=== PATIENT | female | born 1995 | race American Indian/Alaskan Native ===

== ENCOUNTER 2017-07-22 12:19 | Outpatient (CLI) | payer SELFPAY ==
[2017-07-22] MEDS ORDERED: LACTATED RINGERS 500 ML IV ONE (13:08)
[2017-07-22 13:12] VITALS: BP 103/66
[2017-07-22] MEDS ORDERED: ZOFRAN IV ONE (13:33)
[2017-07-22 13:50] LABS: Bilirubin,Urine NEG (Negative); Color,Urine Yellow (Yellow)
[2017-07-22 13:51] LABS: Bacteria,Urine 1+ /HPF (Negative); Blood,Urine NEG (Negative); Mucus,Urine 3+ /HPF; Nitrite,Urine NEG (Negative)
[2017-07-22 14:08] LABS: Amphetamine Screen,Urine PRESUMPTIVE NEGATIVE; Benzodiazepines Screen,Urine PRESUMPTIVE NEGATIVE; Cocaine Screen,Urine PRESUMPTIVE NEGATIVE; Methadone Screen,Urine PRESUMPTIVE NEGATIVE; Opiate Screen,Urine PRESUMPTIVE NEGATIVE
[2017-07-22] MEDS: D5LR 1,000 ML IV SCH ×2 (14:11→16:48)
[2017-07-22 14:24] LABS: Cannabinoid Screen,Urine PRESUMPTIVE POSITIVE
== END 2017-07-22 18:08 | disposition home or self-care (01) ==
LOC: TRG 12:19
PROVIDERS: ATTEND Obstetrics & Gynecology Gynecology
DX: O47.02 False labor before 37 completed weeks of gestation, second trimester (principal); Z3A.29 29 weeks gestation of pregnancy
CPT/HCPCS: 80307; 81001; 96360; 96361; 96374; J2405; J7121

== ENCOUNTER 2021-08-12 21:53 | Emergency (ER) | payer SELFPAY ==
[2021-08-12] MEDS ORDERED: SODIUM CHLORIDE 0.9% 1000 ML 1,000 ML IV ONE (22:58)
[2021-08-12] MEDS ORDERED: diphenhydrAMINE 50 MG/ML VIAL IV ONE (22:58)
[2021-08-12] MEDS ORDERED: METOCLOPRAMIDE 10 MG/2 ML INJ IV ONE (22:58)
[2021-08-12 23:40] LABS: Basophils % (Auto) 0.3 % (0.0-1.8); Eosinophils # (Auto) 0.1 K/mm3 (0.0-0.4); Eosinophils % (Auto) 1.3 % (0.0-4.3); Hematocrit 35.5 % (30.3-42.9); Hemoglobin 11.8 gm/dl (10.1-14.3); Lymphocytes # (Auto) 1.8 K/mm3 (1.2-5.4); Lymphocytes % (Auto) 15.6 % (13.4-35.0); Mean Corpuscular HGB Conc 33 % (30-34); Mean Corpuscular Volume 86 fl (79-97); Monocytes # (Auto) 0.6 K/mm3 (0.0-0.8); Monocytes % (Auto) 5.5 % (0.0-7.3); Platelet Count 147 K/mm3 (140-440); Red Blood Count 4.12 M/mm3 (3.65-5.03); Red Cell Distribution Width 14.9 % (13.2-15.2)
[2021-08-13 00:02] LABS: Alanine Aminotransferase 5 units/L (7-56); Albumin 4.3 g/dL (3.9-5); Blood Urea Nitrogen 12 mg/dL (7-17); Calcium 9.3 mg/dL (8.4-10.2); Hemolysis Index 0
[2021-08-13 00:19] LABS: BUN/Creatinine Ratio 24
[2021-08-13 01:50] LABS: Bilirubin,Urine NEG (Negative); Blood,Urine NEG (Negative); Color,Urine Amber (Yellow); Mucus,Urine 3+ /HPF
--- NOTE | 2021-08-13 03:21 | Emergency Department Report ---
ED N/V/D HPI - General Chief complaint: Nausea/Vomiting/Diarrhea Stated complaint: SHORTNESS OF BREATH AND WEAKNESS Source: EMS Mode of arrival: Stretcher Limitations: No Limitations - History of Present Illness Initial comments: Patient is a A0 26-year-old -[place] female who is approximately 11 to 12 weeks gestation and who presented to the ED with complaint of acute onset persistent pelvic pain with intractable nausea and vomiting for the last 2 weeks, worse in the last 3 days. Patient states that she has not been able to keep anything down in the last 2 days because of worsening nausea and vomiting. Patient states that she initially tried to cut it in and went to an clinic about 4 weeks ago and was given some follow-up tablets that she was advised to insert into have vaginal canal to initiate the process. Patient stated that she does not believe that the ever took place and she may have expelled the medications thereafter. Patient states that she has since changed her mind and wanted to keep the but has been having persistent intractable nausea and vomiting since that incident. Patient denies dizziness, syncope, chest pain or shortness of breath, fever, chills, dysuria, urine frequency and urgency, diarrhea, hematemesis, hematochezia, vaginal bleeding or vaginal discharge. MD complaint: nausea, vomiting, abdominal pain (Suprapubic pain), other (approximatelyn 12 weeks gestation) -: Sudden, week(s) (2) Description of Vomiting: food contents, watery, bilious Associated Abdominal Pain: Yes (suprapubic pain) Location: epigastric Radiation: none Severity: severe Pain Scale: 7 Quality: cramping, sharp Consistency: constant Improves with: none Worsens with: vomiting Context: other (Approximately 11 to 12 weeks gestation) Associated Symptoms: denies other symptoms, nausea/vomiting, weakness. denies: chest pain, cough, diaphoresis, fever/chills, headaches, loss of appetite, malaise, shortness of breath, syncope - Related Data Previous Rx's Medication Instructions Recorded Last Taken Type Acetaminophen [Tylenol] 500 mg PO Q6HR PRN #30 tablet 08/13/21 Unknown Rx Metoclopramide [Reglan] 10 mg PO Q8H PRN #30 tab 08/13/21 Unknown Rx 148/Iron/Folate 6/Dha 1 each PO DAILY #60 cap 08/13/21 Unknown Rx [Tendera-Ob Softgel] Promethazine [Phenergan] 25 mg VT Q6HR PRN #20 supp.rect 08/13/21 Unknown Rx cephALEXin [Keflex] 500 mg PO Q8HR #30 cap 08/13/21 Unknown Rx Allergies Allergy/AdvReac Type Severity Reaction Status Date / Time No Known Allergies Allergy Verified 07/22/17 13:08 ED Review of Systems ROS: Stated complaint: SHORTNESS OF BREATH AND WEAKNESS Other details as noted in HPI Constitutional: denies: chills, fever Eyes: denies: eye pain, eye discharge, vision change ENT: denies: ear pain, throat pain Respiratory: denies: cough, orthopnea, shortness of breath, wheezing Cardiovascular: denies: chest pain, palpitations Endocrine: no symptoms reported Gastrointestinal: abdominal pain, nausea, vomiting. denies: diarrhea Genitourinary: denies: urgency, dysuria, frequency, hematuria, discharge, abnormal menses, dyspareunia Musculoskeletal: denies: back pain, joint swelling, arthralgia Skin: denies: rash, lesions Neurological: denies: headache, weakness, paresthesias Psychiatric: denies: anxiety, depression Hematological/Lymphatic: denies: easy bleeding, easy bruising ED Past Medical Hx - Past Medical History Hx Hypertension: No Hx Diabetes: No Hx Deep Vein Thrombosis: No Hx Renal Disease: No Hx Sickle Cell Disease: No Hx Seizures: No Hx Asthma: No Hx HIV: No - Social History Smoking Status: Never Smoker - Medications Home Medications: Home Medications Medication Instructions Recorded Confirmed Last Taken Type Acetaminophen [Tylenol] 500 mg PO Q6HR PRN #30 tablet 08/13/21 Unknown Rx Metoclopramide [Reglan] 10 mg PO Q8H PRN #30 tab 08/13/21 Unknown Rx 148/Iron/Folate 6/Dha 1 each PO DAILY #60 cap 08/13/21 Unknown Rx [Tendera-Ob Softgel] Promethazine [Phenergan] 25 mg VT Q6HR PRN #20 supp.rect 08/13/21 Unknown Rx cephALEXin [Keflex] 500 mg PO Q8HR #30 cap 08/13/21 Unknown Rx ED Physical Exam - General Limitations: No Limitations General appearance: alert, in no apparent distress - Head Head exam: Present: atraumatic, normocephalic, normal inspection - Eye Eye exam: Present: normal appearance, PERRL, EOMI Pupils: Present: normal accommodation - ENT ENT exam: Present: normal exam, normal orophraynx, mucous membranes moist, TM's normal bilaterally, normal external ear exam - Neck Neck exam: Present: normal inspection, full ROM - Respiratory Respiratory exam: Present: normal lung sounds bilaterally. Absent: respiratory distress, wheezes, rales, rhonchi, chest wall tenderness, accessory muscle use, decreased breath sounds, prolonged expiratory - Cardiovascular Cardiovascular Exam: Present: regular rate, normal rhythm, normal heart sounds. Absent: systolic murmur, diastolic murmur, rubs, gallop - GI/Abdominal GI/Abdominal exam: Present: soft, tenderness (Palpable suprapubic tenderness), normal bowel sounds. Absent: guarding, rebound, hyperactive bowel sounds, hypoactive bowel sounds, organomegaly - Extremities Exam Extremities exam: Present: normal inspection, full ROM, normal capillary refill - Back Exam Back exam: Present: normal inspection, full ROM. Absent: tenderness, CVA tende rness (R), CVA tenderness (L), muscle spasm, paraspinal tenderness, vertebral tenderness - Neurological Exam Neurological exam: Present: alert, oriented X3, CN II-XII intact, normal gait, reflexes normal - Psychiatric Psychiatric exam: Present: normal affect, normal mood - Skin Skin exam: Present: warm, dry, intact, normal color. Absent: rash ED Course Vital Signs 08/12/21 22:10 Temperature 98.5 F Pulse Rate 88 Respiratory 16 Rate Blood Pressure 121/81 [Left] O2 Sat by Pulse 100 Oximetry ED Medical Decision Making - Lab Data Result diagrams: 08/12/21 23:19 08/12/21 23:19 - Radiology Data Radiology results: report reviewed, image reviewed The transvaginal ultrasound showed well-defined gestational sac which is oval in shape and intrauterine in location with no abnormality on the yolk sac. Is also showed right ovary which is unremarkable in normal size and left ovary which was not identified. The uterus the aforementioned 8.9 x 7.2 x 10.0 cm. Right ovary measured 3.8 by 1.4 x 2.2 cm. It also showed a single living intrauterine with estimated sonographic age of 12 weeks and 3 days and estimated date of delivery of February 22, 2022 and heart rate 157 bpm. - Medical Decision Making This is a A0 26-year-old -[place] female who is approximately 11 to 12 weeks gestation and who presented to the ED with complaint of acute onset persistent pelvic pain with intractable nausea and vomiting for the last 2 weeks, worse in the last 3 days. Patient states that she has not been able to keep anything down in the last 2 days because of worsening nausea and vomiting. Patient states that she initially tried to cut it in and went to an clinic about 4 weeks ago and was given some follow-up tablets that she was advised to insert into have vaginal canal to initiate the process. Patient stated that she does not believe that the ever took place and she may have expelled the medications thereafter. Patient states that she has since changed her mind and wanted to keep the but has been having persistent intractable nausea and vomiting since that incident. In the ED, patient is alert and oriented x3 and is not in any distress. Patient was treated in the ED for nausea and vomiting, also treated with normal saline 1 L IV bolus x1. Lab test results were reviewed and are all nonactionable except for urinalysis that showed significant urinary tract infection and hCG quant of 544010 and hyponatremia of 133 mmol/L and mild hypokalemia of 3.4 mmol/L. Transvaginal ultrasound showed a single live intrauterine of approximately 12 weeks and 3 days with a heart rate of 157 bpm and no other acute abnormalities. On reevaluation, patient passed oral fluid challenge in the ED and was able to drink fluids in the ED with no nausea or vomiting. Patient was therefore discharged home on medications and advised to maintain a complete pelvic rest, and follow-up with your [facility] physician in 5 to 7 days for reevaluation. Patient was advised return to the ED immediately if symptoms get worse. - Differential Diagnosis UTI; Ovarian cyst; ectopic ; round ligament pain; dehydration Critical care attestation.: If time is entered above; I have spent that time in minutes in the direct care of this critically ill patient, excluding procedure time. ED Disposition Clinical Impression: Nausea and vomiting in prior to 22 weeks gestation, Abdominal pain during in first trimester, Acute urinary tract infection, Mild hyperemesis gravidarum Disposition: 01 HOME / SELF CARE / HOMELESS Is pt being admited?: No Does the pt Need Aspirin: No Condition: Stable Instructions: Abdominal Pain, Adult, [id number], Morning Sickness, [id number], Nausea and Vomiting, Adult, [id number], Hyperemesis Gravidarum, Urinary Tract Infection, Adult, [id number] Additional Instructions: All lab test results were reviewed and are all nonactionable except for urinalysis that showed urinary tract infection. Transvaginal ultrasound showed a single live intrauterine of approximately 12 weeks and 3 days with a heart rate of 157 bpm. Therefore maintain a complete pelvic rest, take medications as needed for nausea and vomiting, Tylenol as needed for pain and the prescribed antibiotics and vitamins. Follow-up with your [facility] physician Dr. Ram in 3 to 5 days for reevaluation. Return to the ED immediately if symptoms get worse. Prescriptions: Acetaminophen [Tylenol] 500 mg PO Q6HR PRN #30 tablet PRN Reason: Pain , Severe (7-10) cephALEXin [Keflex] 500 mg PO Q8HR #30 cap Promethazine [Phenergan] 25 mg VT Q6HR PRN #20 supp.rect PRN Reason: Nausea Metoclopramide [Reglan] 10 mg PO Q8H PRN #30 tab PRN Reason: Nausea 148/Iron/Folate 6/Dha [Tendera-Ob Softgel] 1 each PO DAILY #60 cap Referrals: LAN RAM MD [Staff Physician] - 3-5 Days Time of Disposition: 03:27 Print Language: EQUATORIAL [place]
[2021-08-13 04:02] VITALS: BP 122/62
== END 2021-08-13 04:01 | disposition home or self-care (01) ==
LOC: ED 21:53
DX: O21.0 Mild hyperemesis gravidarum (principal); O23.41 Unspecified infection of urinary tract in pregnancy, first trimester; N39.0 Urinary tract infection, site not specified; Z3A.11 11 weeks gestation of pregnancy; Z79.899 Other long term (current) drug therapy
CPT/HCPCS: 36415; 76801; 76817; 80053; 81001; 83690; 84702; 85025; 87086; 96361; 96374; 96375; 99284; J1200; J2765; J7030; Q0162

== ENCOUNTER 2022-02-10 10:24 | Inpatient (IN) | payer MEDICAID ==
[~2022-02-10 10:24] MED LIST: ACETAMINOPHEN 325 MG TAB PO PRN
--- NOTE | 2022-02-10 12:36 | Ultrasound Report ---
ULTRASOUND OBSTETRIC LIMITED INDICATION / CLINICAL INFORMATION: LIN R/O SROM. Possibly leaking fluid. - Clinical Gestational Age (GA) in weeks, days: 38, 3 TECHNIQUE: Transabdominal. COMPARISON: None available. FINDINGS: HEART RATE (beats per minute): 135 AMNIOTIC FLUID INDEX (cm) = 9.6 (normal = 7-24 cm) PRESENTATION: Cephalic. ADDITIONAL FINDINGS: Anterior, grade 2 placenta without evidence of previa or abruption. IMPRESSION: LIN 9.6 cm. Signer Name: Ferdinand Campbell MD Signed: 02/10/2022 12:31 PM Workstation Name: [email or web address]
--- NOTE | 2022-02-10 14:31 | History and Physical Report ---
History of Present Illness Date of examination: 02/10/22 Chief complaint: my water broke History of present illness: Pt is a 26 year old -Citizen Of The [place] female [id number] AUDREY 02/21/22 at 38w4d who presents with rupture of membranes at 0645 am 02/10/22. She denies contractions or vaginal bleeding. She has had care at [facility] since 20 wks complicated by insufficient care, anemia, h/o preeclampsia, thrombocytopenia, genital herpes without lesion or prodrome, lapse in care from 26-37 wks. She is GBS negative. Past History Past Medical History: hematologic disorders (anemia ) Past Surgical History: no surgical history [employer] History: herpes (no lesion or prodrome ) Family/Genetic History: none Social history: no significant social history - Obstetrical History Expected Date of Delivery: 02/21/22 Actual Gestation: 38 Week(s) 4 Day(s) : 4 Para: 3 Hx # Term Pregnancies: 2 Number of Pregnancies: 1 Spontaneous Abortions: 0 Induced : 0 Number of Living Children: 3 Medications and Allergies Allergies Allergy/AdvReac Type Severity Reaction Status Date / Time No Known Allergies Allergy Verified 07/22/17 13:08 Home Medications Medication Instructions Recorded Confirmed Last Taken Type 148/Iron/Folate 6/Dha 1 each PO DAILY #60 cap 08/13/21 02/10/22 01/27/22 11:00 Rx [Tendera-Ob Softgel] Valtrex 1 tab PO BID 02/10/22 02/10/22 02/09/22 History Active Meds: Active Medications Acetaminophen (Acetaminophen 325 Mg Tab) 650 mg PO Q4H PRN PRN Reason: Pain, Mild (1-3) Butorphanol Tartrate (Butorphanol 2 Mg/1 Ml Inj) 1 mg IV Q2H PRN PRN Reason: Pain, Moderate(4-6) LABOR PAIN Carboprost Tromethamine (Carboprost Tromethamine 250 Mcg/1 Ml Inj) 250 mcg IM ONCE PRN PRN Reason: Uterine Bleeding Ephedrine Sulfate (Ephedrine Sulfate 50 Mg/1 Ml Inj) 10 mg IV Q2M PRN PRN Reason: Hypotension Fentanyl (Fentanyl 100 Mcg/2 Ml Inj) 100 mcg IV Q2H PRN PRN Reason: Pain,Severe (7-10) LABOR PAIN Oxytocin/Sodium Chloride (Pitocin/Ns 30 Unit/500ml) 30 units in 500 mls @ 2 mls/hr IV TITR LESLEY; Protocol Lactated Ringer's (Lactated Ringers) 1,000 mls @ 125 mls/hr IV DIRECT LESLEY Oxytocin/Sodium Chloride (Pitocin/Ns 30 Unit/500ml) 30 units in 500 mls @ 40 mls/hr IV TITR LESLEY; Protocol Lidocaine (Lidocaine (2%) 20 Mg/1 Ml Vial 20 Ml Mdv) 20 ml INFILTRATI ONCE ONE Stop: 02/10/22 14:27 Loperamide HCl (Loperamide 2 Mg Cap) 2 mg PO ONCE PRN PRN Reason: give with Hemabate Methylergonovine Maleate (Methylergonovine Maleate 0.2 Mg/Ml Vial) 0.2 mg IM ONCE PRN PRN Reason: Uterine Bleeding Mineral Oil (Mineral Oil 30 Ml Oral Liqd) 30 ml PO QHS PRN PRN Reason: Constipation Misoprostol (Misoprostol 200 Mcg Tab) 800 mcg MN ONCE PRN PRN Reason: Uterine Bleeding Naloxone HCl (Naloxone 0.4 Mg/1 Ml Inj) 0.1 mg IV Q2MIN PRN PRN Reason: Res Rate </= 8 or 02 SAT < 92% Ondansetron HCl (Ondansetron 4 Mg/2 Ml Inj) 4 mg IV Q8H PRN PRN Reason: Nausea And Vomiting Oxytocin (Oxytocin 10 Unit/1 Ml Inj) 10 unit IM ONCE PRN PRN Reason: Uterine Bleeding Terbutaline Sulfate (Terbutaline 1 Mg/1 Ml Inj) 0.25 mg SUB-Q ONCE PRN PRN Reason: Hyperstimulation/Hypertonicity Review of Systems All systems: negative - Vital Signs Vital signs: Vital Signs Pulse BP Pulse Ox 91 H 128/71 98 02/10/22 11:05 02/10/22 11:05 02/10/22 11:05 Temp Pulse Resp BP Pulse Ox 97.7 F 78 18 128/71 99 02/10/22 11:21 02/10/22 12:55 02/10/22 11:21 02/10/22 11:05 02/10/22 12:55 - Physical Exam Breasts: Positive: deferred Abdomen: Positive: soft (gravid ) Uterus: Positive: enlarged (gravid ) Extremities: Positive: edema (trace) - Obstetrical FHR: auscultation normal Uterine Contraction Monitor Mode: External Cervical Dilatation: 1 Cervical Effacement Percentage: 40 station: -3 Uterine Contraction Pattern: Irregular Uterine Tone Measurement Phase: Resting Uterine Contraction Intensity: Mild Results Result Diagrams: 02/10/22 16:30 All other labs normal. Assessment and Plan A: IUP at 38w3d SROM Thrombocytopenia Anemia Genital Herpes without lesion or prodrome GBS Negative P: Admit to labor and delivery Pitocin induction Valtrex for herpes prophylaxis Closely monitor maternal and status
[2022-02-10] MEDS ORDERED: ACETAMINOPHEN 325 MG TAB PO PRN (15:00)
[2022-02-10] MEDS ORDERED: BUTORPHANOL 2 MG/1 ML INJ IV PRN (15:00)
[2022-02-10] MEDS ORDERED: METHYLERGONOVINE MALEATE 0.2 MG/ML VIAL IM PRN (15:00)
[2022-02-10] MEDS ORDERED: miSOPROStol 200 MCG TAB PR PRN (15:00)
[2022-02-10] MEDS ORDERED: OXYTOCIN DRIP 30 UNITS/500 ML BAG IV SCH (15:00)
[2022-02-10] MEDS ORDERED: CARBOPROST TROMETHAMINE 250 MCG/1 ML INJ IM PRN (15:00)
[2022-02-10] MEDS ORDERED: NALOXONE 0.4 MG/1 ML INJ IV PRN (15:00)
[2022-02-10] MEDS ORDERED: OXYTOCIN 10 UNIT/1 ML INJ IM PRN (15:00)
[2022-02-10] MEDS ORDERED: LIDOCAINE (2%) 20 MG/1 ML VIAL 20 ML MDV INFILTRATI NR (15:00)
[2022-02-10] MEDS ORDERED: LOPERAMIDE 2 MG CAP PO PRN (15:00)
[2022-02-10] MEDS ORDERED: TERBUTALINE 1 MG/1 ML INJ SUB-Q PRN (15:00)
[2022-02-10] MEDS ORDERED: MINERAL OIL 30 ML ORAL LIQD PO PRN (15:00)
[2022-02-10] MEDS ORDERED: ONDANSETRON 4 MG/2 ML INJ IV PRN (15:00)
[2022-02-10] MEDS ORDERED: ePHEDrine SULFATE 50 MG/1 ML INJ IV PRN (15:00)
[2022-02-10 17:50] LABS: Hematocrit 23.8 % (30.3-42.9); Hemoglobin 7.6 gm/dl (10.1-14.3); Mean Corpuscular HGB Conc 32 % (30-34); Red Blood Count 3.63 M/mm3 (3.65-5.03); Red Cell Distribution Width 19.8 % (13.2-15.2)
[2022-02-10 18:18] LABS: Mean Corpuscular Volume 66 fl (79-97)
[2022-02-10] MEDS ORDERED: SODIUM CHLORIDE 0.9% 500 ML 500 ML IV ONE (18:41)
[2022-02-10] MEDS: OXYTOCIN DRIP 30 UNITS/500 ML BAG IV SCH (19:06)
[2022-02-10] MEDS: LACTATED RINGERS 1,000 ML IV SCH (19:07)
[2022-02-10 19:42] LABS: Platelet Count 88 K/mm3 (140-440)
[2022-02-11] MEDS ORDERED: AMPICILLIN/NS 2 GM/100 ML 2 GM/100 ML BAG IV ONE ×2 (01:36→14:22)
[2022-02-11] MEDS: OXYTOCIN DRIP 30 UNITS/500 ML BAG IV SCH (09:49)
[2022-02-11] MEDS ORDERED: valACYclovir 500 MG TAB PO SCH (10:00)
--- NOTE | 2022-02-11 13:15 | Progress Note ---
Assessment and Plan - Patient Problems (1) with 38 completed weeks gestation Current Visit: Yes Status: Acute Plan to address problem: Presenting part very high Confirmed vertex presentation via U/S Feels as if forebag is p Continue Pitocin titration as tolerated Pain meds as needed (2) Thrombocytopenia affecting Current Visit: Yes Status: Acute (3) HSV-2 seropositive Current Visit: Yes Status: Acute Plan to address problem: No active lesions noted Subjective - Subjective Date of service: 02/11/22 Principal diagnosis: Possibel ROM Interval history: Pt is a 26 year old -[place] female [id number] AUDREY 02/21/22 at 38w4d who presents with rupture of membranes at 0645 am 02/10/22. She denies contractions or vaginal bleeding. She has had care at [facility] since 20 wks complicated by insufficient care, anemia, h/o preeclampsia, thrombocytopenia, genital herpes without lesion or prodrome, lapse in care from 26-37 wks. She is GBS negative. Patient reports: movement normal, contractions (irregular), no new complaints, no vaginal bleeding Objective - Vital Signs Vital Signs: Vital Signs - 12hr 02/11/22 02/11/22 02/11/22 01:19 01:24 01:29 Temperature Pulse Rate 82 82 83 Blood Pressure O2 Sat by Pulse 98 98 98 Oximetry O2 Sat by Pulse Oximetry [ Anterior Throughout] 02/11/22 02/11/22 02/11/22 01:34 01:39 01:44 Temperature Pulse Rate 83 89 81 Blood Pressure O2 Sat by Pulse 99 99 97 Oximetry O2 Sat by Pulse Oximetry [ Anterior Throughout] 02/11/22 02/11/22 02/11/22 01:49 01:54 01:59 Temperature Pulse Rate 81 79 79 Blood Pressure O2 Sat by Pulse 98 97 97 Oximetry O2 Sat by Pulse Oximetry [ Anterior Throughout] 02/11/22 02/11/22 02/11/22 02:04 02:09 02:14 Temperature Pulse Rate 82 89 93 H Blood Pressure O2 Sat by Pulse 98 99 99 Oximetry O2 Sat by Pulse Oximetry [ Anterior Throughout] 02/11/22 02/11/22 02/11/22 02:19 02:24 02:29 Temperature Pulse Rate 91 H 81 80 Blood Pressure O2 Sat by Pulse 100 98 99 Oximetry O2 Sat by Pulse Oximetry [ Anterior Throughout] 02/11/22 02/11/22 02/11/22 02:34 02:39 02:44 Temperature Pulse Rate 89 88 80 Blood Pressure O2 Sat by Pulse 98 98 99 Oximetry O2 Sat by Pulse Oximetry [ Anterior Throughout] 02/11/22 02/11/22 02/11/22 02:49 02:54 02:59 Temperature Pulse Rate 100 H 86 86 Blood Pressure O2 Sat by Pulse 100 99 100 Oximetry O2 Sat by Pulse Oximetry [ Anterior Throughout] 02/11/22 02/11/22 02/11/22 03:04 03:09 03:14 Temperature Pulse Rate 83 84 87 Blood Pressure O2 Sat by Pulse 100 98 99 Oximetry O2 Sat by Pulse Oximetry [ Anterior Throughout] 02/11/22 02/11/22 02/11/22 03:19 03:24 03:29 Temperature Pulse Rate 80 81 80 Blood Pressure O2 Sat by Pulse 99 99 99 Oximetry O2 Sat by Pulse Oximetry [ Anterior Throughout] 02/11/22 02/11/22 02/11/22 03:34 03:39 03:44 Temperature Pulse Rate 82 79 86 Blood Pressure O2 Sat by Pulse 98 98 99 Oximetry O2 Sat by Pulse Oximetry [ Anterior Throughout] 02/11/22 02/11/22 02/11/22 03:49 03:54 03:59 Temperature Pulse Rate 88 88 91 H Blood Pressure O2 Sat by Pulse 98 99 98 Oximetry O2 Sat by Pulse Oximetry [ Anterior Throughout] 02/11/22 02/11/22 02/11/22 04:04 04:09 04:14 Temperature Pulse Rate 81 78 78 Blood Pressure O2 Sat by Pulse 99 97 97 Oximetry O2 Sat by Pulse Oximetry [ Anterior Throughout] 02/11/22 02/11/22 02/11/22 04:19 04:24 04:29 Temperature Pulse Rate 94 H 78 76 Blood Pressure O2 Sat by Pulse 97 97 97 Oximetry O2 Sat by Pulse Oximetry [ Anterior Throughout] 02/11/22 02/11/22 02/11/22 04:34 04:39 04:44 Temperature Pulse Rate 75 79 78 Blood Pressure O2 Sat by Pulse 97 97 97 Oximetry O2 Sat by Pulse Oximetry [ Anterior Throughout] 02/11/22 02/11/22 02/11/22 04:49 04:54 04:59 Temperature Pulse Rate 80 81 80 Blood Pressure O2 Sat by Pulse 97 97 96 Oximetry O2 Sat by Pulse Oximetry [ Anterior Throughout] 02/11/22 02/11/22 02/11/22 05:04 05:09 05:14 Temperature Pulse Rate 94 H 79 74 Blood Pressure O2 Sat by Pulse 100 97 97 Oximetry O2 Sat by Pulse Oximetry [ Anterior Throughout] 02/11/22 02/11/22 02/11/22 05:19 05:24 05:29 Temperature Pulse Rate 77 84 76 Blood Pressure O2 Sat by Pulse 97 98 97 Oximetry O2 Sat by Pulse Oximetry [ Anterior Throughout] 02/11/22 02/11/22 02/11/22 05:34 05:39 05:44 Temperature Pulse Rate 78 79 76 Blood Pressure O2 Sat by Pulse 97 98 98 Oximetry O2 Sat by Pulse Oximetry [ Anterior Throughout] 02/11/22 02/11/22 02/11/22 05:49 05:54 06:09 Temperature Pulse Rate 78 84 94 H Blood Pressure O2 Sat by Pulse 98 97 99 Oximetry O2 Sat by Pulse Oximetry [ Anterior Throughout] 02/11/22 02/11/22 02/11/22 06:14 06:19 06:24 Temperature Pulse Rate 80 80 75 Blood Pressure O2 Sat by Pulse 99 100 99 Oximetry O2 Sat by Pulse Oximetry [ Anterior Throughout] 02/11/22 02/11/22 02/11/22 06:29 06:34 06:39 Temperature Pulse Rate 80 83 77 Blood Pressure O2 Sat by Pulse 98 99 99 Oximetry O2 Sat by Pulse Oximetry [ Anterior Throughout] 02/11/22 02/11/22 02/11/22 06:44 06:49 06:54 Temperature Pulse Rate 78 77 80 Blood Pressure O2 Sat by Pulse 99 99 99 Oximetry O2 Sat by Pulse Oximetry [ Anterior Throughout] 02/11/22 02/11/22 02/11/22 06:59 07:04 07:09 Temperature Pulse Rate 80 77 82 Blood Pressure O2 Sat by Pulse 99 99 98 Oximetry O2 Sat by Pulse Oximetry [ Anterior Throughout] 02/11/22 02/11/22 02/11/22 07:14 07:19 07:21 Temperature Pulse Rate 81 79 Blood Pressure O2 Sat by Pulse 99 99 Oximetry O2 Sat by Pulse 99 Oximetry [ Anterior Throughout] 02/11/22 02/11/22 02/11/22 07:24 07:29 07:34 Temperature Pulse Rate 84 79 72 Blood Pressure O2 Sat by Pulse 99 99 99 Oximetry O2 Sat by Pulse Oximetry [ Anterior Throughout] 02/11/22 02/11/22 02/11/22 07:39 07:44 07:49 Temperature Pulse Rate 70 88 80 Blood Pressure O2 Sat by Pulse 99 99 99 Oximetry O2 Sat by Pulse Oximetry [ Anterior Throughout] 02/11/22 02/11/22 02/11/22 07:54 07:59 08:04 Temperature Pulse Rate 82 87 89 Blood Pressure O2 Sat by Pulse 98 98 99 Oximetry O2 Sat by Pulse Oximetry [ Anterior Throughout] 02/11/22 02/11/22 02/11/22 08:09 08:14 08:19 Temperature Pulse Rate 81 84 79 Blood Pressure O2 Sat by Pulse 100 99 98 Oximetry O2 Sat by Pulse Oximetry [ Anterior Throughout] 02/11/22 02/11/22 02/11/22 08:24 08:29 08:33 Temperature Pulse Rate 81 81 94 H Blood Pressure 117/69 O2 Sat by Pulse 98 97 Oximetry O2 Sat by Pulse Oximetry [ Anterior Throughout] 02/11/22 02/11/22 02/11/22 08:34 08:39 08:44 Temperature 98.6 F Pulse Rate 99 H 97 H 91 H Blood Pressure O2 Sat by Pulse 100 100 100 Oximetry O2 Sat by Pulse Oximetry [ Anterior Throughout] 02/11/22 02/11/22 02/11/22 08:49 08:54 08:59 Temperature Pulse Rate 96 H 84 91 H Blood Pressure O2 Sat by Pulse 99 99 98 Oximetry O2 Sat by Pulse Oximetry [ Anterior Throughout] 02/11/22 02/11/22 02/11/22 09:04 09:09 09:14 Temperature Pulse Rate 85 86 92 H Blood Pressure O2 Sat by Pulse 100 99 99 Oximetry O2 Sat by Pulse Oximetry [ Anterior Throughout] 02/11/22 02/11/22 02/11/22 09:19 09:24 09:29 Temperature Pulse Rate 88 82 85 Blood Pressure O2 Sat by Pulse 98 99 100 Oximetry O2 Sat by Pulse Oximetry [ Anterior Throughout] 02/11/22 02/11/22 02/11/22 09:34 09:39 09:44 Temperature Pulse Rate 81 83 76 Blood Pressure O2 Sat by Pulse 99 99 99 Oximetry O2 Sat by Pulse Oximetry [ Anterior Throughout] 02/11/22 02/11/22 02/11/22 09:49 09:54 09:59 Temperature Pulse Rate 84 83 82 Blood Pressure O2 Sat by Pulse 99 99 100 Oximetry O2 Sat by Pulse Oximetry [ Anterior Throughout] 02/11/22 02/11/22 02/11/22 10:04 10:09 10:14 Temperature Pulse Rate 86 97 H 89 Blood Pressure O2 Sat by Pulse 99 100 100 Oximetry O2 Sat by Pulse Oximetry [ Anterior Throughout] 02/11/22 02/11/22 02/11/22 10:19 10:24 10:29 Temperature Pulse Rate 88 82 93 H Blood Pressure O2 Sat by Pulse 99 100 98 Oximetry O2 Sat by Pulse Oximetry [ Anterior Throughout] 02/11/22 02/11/22 02/11/22 10:34 10:39 10:44 Temperature Pulse Rate 81 75 89 Blood Pressure O2 Sat by Pulse 100 96 99 Oximetry O2 Sat by Pulse Oximetry [ Anterior Throughout] 02/11/22 02/11/22 02/11/22 10:49 10:54 10:59 Temperature 98.4 F Pulse Rate 77 75 75 Blood Pressure O2 Sat by Pulse 98 97 97 Oximetry O2 Sat by Pulse Oximetry [ Anterior Throughout] 02/11/22 02/11/22 02/11/22 11:04 11:09 11:14 Temperature Pulse Rate 72 72 74 Blood Pressure O2 Sat by Pulse 98 96 95 Oximetry O2 Sat by Pulse Oximetry [ Anterior Throughout] 02/11/22 02/11/22 02/11/22 11:19 11:24 11:29 Temperature Pulse Rate 77 73 80 Blood Pressure O2 Sat by Pulse 97 98 99 Oximetry O2 Sat by Pulse Oximetry [ Anterior Throughout] 02/11/22 02/11/22 02/11/22 11:34 11:39 11:44 Temperature Pulse Rate 78 84 77 Blood Pressure O2 Sat by Pulse 100 98 100 Oximetry O2 Sat by Pulse Oximetry [ Anterior Throughout] 02/11/22 02/11/22 02/11/22 11:49 11:54 11:59 Temperature Pulse Rate 79 77 76 Blood Pressure O2 Sat by Pulse 99 99 99 Oximetry O2 Sat by Pulse Oximetry [ Anterior Throughout] 02/11/22 02/11/22 02/11/22 12:04 12:09 12:14 Temperature Pulse Rate 80 77 75 Blood Pressure O2 Sat by Pulse 99 98 98 Oximetry O2 Sat by Pulse Oximetry [ Anterior Throughout] 02/11/22 02/11/22 02/11/22 12:19 12:24 12:29 Temperature Pulse Rate 71 77 86 Blood Pressure O2 Sat by Pulse 98 99 100 Oximetry O2 Sat by Pulse Oximetry [ Anterior Throughout] 02/11/22 02/11/22 02/11/22 12:34 12:39 12:44 Temperature Pulse Rate 97 H 88 82 Blood Pressure O2 Sat by Pulse 100 100 99 Oximetry O2 Sat by Pulse Oximetry [ Anterior Throughout] 02/11/22 02/11/22 02/11/22 12:49 12:54 12:59 Temperature Pulse Rate 114 H 81 82 Blood Pressure O2 Sat by Pulse 100 100 100 Oximetry O2 Sat by Pulse Oximetry [ Anterior Throughout] 02/11/22 02/11/22 13:04 13:09 Temperature Pulse Rate 76 83 Blood Pressure O2 Sat by Pulse 100 100 Oximetry O2 Sat by Pulse Oximetry [ Anterior Throughout] - Exam Breasts: deferred Cardiovascular: Regular rate Lungs: Normal air movement Uterus: Present: firm (S=D) FHR: category 1 Uterine Contraction Monitor Mode: External Cervical Dilatation: 5 (vertex, confirmed by U/S) Cervical Effacement Percentage: 60 station: -4 Uterine Contraction Pattern: Irregular Uterine Tone Measurement Phase: Resting Uterine Contraction Intensity: Mild Extremities: normal - Labs Labs: Abnormal Labs 02/10/22 02/10/22 16:30 16:30 RBC 3.63 L Hgb 7.6 L Hct 23.8 L MCV 66 L MCH 21 L RDW 19.8 H Plt Count 88 L Crossmatch See Detail Laboratory Results - last 24 hr 02/10/22 02/10/22 02/11/22 16:30 16:30 11:37 WBC 9.2 RBC 3.63 L Hgb 7.6 L Hct 23.8 L MCV 66 L MCH 21 L MCHC 32 RDW 19.8 H Plt Count 88 L SARS-CoV-2 (PCR) Negative Blood Type A POSITIVE Antibody Screen Negative Crossmatch See Detail
[2022-02-11] MEDS: LACTATED RINGERS 1,000 ML IV SCH ×2 (14:09→23:07)
[2022-02-11] MEDS: fentaNYL 100 MCG/2 ML INJ IV PRN ×3 (14:27→20:52)
[2022-02-11] MEDS: AMPICILLIN/NS 1 GM/50 ML 1 GM/50 ML BAG IV SCH ×2 (18:37→23:21)
[2022-02-11] MEDS ORDERED: BUTORPHANOL 2 MG/1 ML INJ IV PRN (20:47)
--- NOTE | 2022-02-12 00:02 | Progress Note ---
Assessment and Plan - Patient Problems (1) with 38 completed weeks gestation Current Visit: Yes Status: Acute Plan to address problem: Continue Pitocin titration as tolerated Pain meds as needed Anticipate (2) Thrombocytopenia affecting Current Visit: Yes Status: Acute (3) HSV-2 seropositive Current Visit: Yes Status: Acute Plan to address problem: No active lesions noted Subjective - Subjective Date of service: 02/11/22 Principal diagnosis: SROM Interval history: Pt is a 26 year old -[place] female [id number] AUDREY 02/21/22 at 38w4d who presents with rupture of membranes at 0645 am 02/10/22. She denies contractions or vaginal bleeding. She has had care at [facility] since 20 wks complicated by insufficient care, anemia, h/o preeclampsia, thrombocytopenia, genital herpes without lesion or prodrome, lapse in care from 26-37 wks. She is GBS negative. Patient reports: loss of fluid (blood-tinged fluids), movement normal, contractions (painfully), no vaginal bleeding Objective - Vital Signs Vital Signs: Vital Signs - 12hr 02/11/22 02/11/22 02/11/22 11:59 12:04 12:09 Temperature Pulse Rate 76 80 77 Respiratory Rate Blood Pressure O2 Sat by Pulse 99 99 98 Oximetry 02/11/22 02/11/22 02/11/22 12:14 12:19 12:24 Temperature Pulse Rate 75 71 77 Respiratory Rate Blood Pressure O2 Sat by Pulse 98 98 99 Oximetry 02/11/22 02/11/22 02/11/22 12:29 12:34 12:39 Temperature Pulse Rate 86 97 H 88 Respiratory Rate Blood Pressure O2 Sat by Pulse 100 100 100 Oximetry 02/11/22 02/11/22 02/11/22 12:44 12:49 12:54 Temperature Pulse Rate 82 114 H 81 Respiratory Rate Blood Pressure O2 Sat by Pulse 99 100 100 Oximetry 02/11/22 02/11/22 02/11/22 12:59 13:04 13:09 Temperature Pulse Rate 82 76 83 Respiratory Rate Blood Pressure O2 Sat by Pulse 100 100 100 Oximetry 02/11/22 02/11/22 02/11/22 13:17 14:00 14:27 Temperature 98.4 F Pulse Rate 80 Respiratory 16 Rate Blood Pressure 121/70 O2 Sat by Pulse Oximetry 02/11/22 02/11/22 02/11/22 16:05 17:02 22:50 Temperature 98.0 F Pulse Rate Respiratory 16 18 Rate Blood Pressure O2 Sat by Pulse Oximetry 02/11/22 02/11/22 02/11/22 23:10 23:15 23:20 Temperature Pulse Rate 76 74 68 Respiratory Rate Blood Pressure O2 Sat by Pulse 86 96 99 Oximetry 02/11/22 02/11/22 02/11/22 23:25 23:30 23:35 Temperature Pulse Rate 78 72 70 Respiratory Rate Blood Pressure O2 Sat by Pulse 97 99 99 Oximetry 02/11/22 02/11/22 02/11/22 23:40 23:45 23:50 Temperature Pulse Rate 88 72 68 Respiratory Rate Blood Pressure O2 Sat by Pulse 99 99 99 Oximetry 02/11/22 23:55 Temperature Pulse Rate 65 Respiratory Rate Blood Pressure O2 Sat by Pulse 100 Oximetry - Exam Breasts: deferred Cardiovascular: Regular rate Lungs: Normal air movement FHR: category 1 Uterine Contraction Monitor Mode: External Cervical Dilatation: 9 (vertex) Cervical Effacement Percentage: 80 (Pitocin @ 18 mu/min) station: -1 Uterine Contraction Frequency (min): 2-4 Uterine Contraction Pattern: Regular Uterine Tone Measurement Phase: Resting Uterine Contraction Intensity: Strong/Firm Extremities: normal - Labs Labs: Abnormal Labs 02/10/22 02/10/22 16:30 16:30 RBC 3.63 L Hgb 7.6 L Hct 23.8 L MCV 66 L MCH 21 L RDW 19.8 H Plt Count 88 L Crossmatch See Detail Laboratory Results - last 24 hr 02/11/22 11:37 SARS-CoV-2 (PCR) Negative
[2022-02-12] MEDS ORDERED: LANOLIN/ZINC/DIMETHICONE (LANSINOH) 7 GM TP PRN (01:14)
[2022-02-12] MEDS ORDERED: oxyCODONE /ACETAMINOPHEN 5-325MG TAB PO PRN (01:14)
[2022-02-12] MEDS ORDERED: diphenhydrAMINE 25 MG CAP PO PRN (01:14)
[2022-02-12] MEDS ORDERED: PROMETHAZINE 25 MG TAB PO PRN (01:14)
[2022-02-12] MEDS ORDERED: WITCH HAZEL/ GLYCERIN PAD TP PRN (01:14)
[2022-02-12] MEDS ORDERED: MAGNESIUM HYDROXIDE (MOM) ORAL LIQD UDC PO PRN (01:14)
--- NOTE | 2022-02-12 01:24 | Procedure Note ---
OB Delivery Note - Delivery Date of Delivery: 02/12/22 (0057) Surgeon: PAMELA CASTAÑEDA (CNM) Estimated blood loss: 200cc - Vaginal Delivery presentation: vertex Delivery position: OP (ROP) Intrapartum events: PROM->1hr before delivery Delivery induction: none Delivery augmentation: rupture of membranes (SROM: 02/10/22 @ 0645), pitocin Delivery monitor: external FHT, external uterine Route of delivery: Delivery placenta: spontaneous (0101) Episiotomy: none Delivery laceration: none Anesthesia: none Delivery comments: of viable, crying male placed directly to maternal abdomen. Cord double clamped and cut by myself after cessation of pulsation. Placenta spontaneously delivered, jarquin, disposed per hospital policy. Uterus firm @ U-3, hemostasis maintained. Perineum intact. Mother and baby safe, stable and left in care of RN. - A at 1 minute: 9 at 5 minutes: 9 Gender: Male (Weight: 2810 gms (6lbs 3 ozs))
[2022-02-12] MEDS: IBUPROFEN 800 MG TAB PO SCH ×2 (02:03→09:30)
[2022-02-12] MEDS ORDERED: PRENATAL VIT27-FE FUMARATE-FOLIC ACID VIT TAB PO SCH (10:00)
[2022-02-12] MEDS ORDERED: SODIUM CHLORIDE 0.9% 1000 ML 1,000 ML ONE ×3 (10:36→11:39)
[2022-02-12] MEDS ORDERED: OXYTOCIN DRIP 30,000 MILLIUNITS/500 ML BAG IV ONE (10:42)
[2022-02-12] MEDS ORDERED: miSOPROStol 200 MCG TAB ONE (10:55)
[2022-02-12] MEDS ORDERED: fentaNYL 100 MCG/2 ML INJ IV STA (10:57)
[2022-02-12] MEDS ORDERED: METHYLERGONOVINE MALEATE 0.2 MG/ML VIAL IM ONE (11:00)
[2022-02-12] MEDS ORDERED: SODIUM CHLORIDE 0.9% 500 ML 500 ML IV SCH ×2 (11:00→16:40)
[2022-02-12] MEDS ORDERED: METHYLERGONOVINE 0.2 MG TABLET PO ONE (11:00)
[2022-02-12 11:09] LABS: Hematocrit 21.5 % (30.3-42.9); Hemoglobin 6.8 gm/dl (10.1-14.3); Mean Corpuscular HGB Conc 31 % (30-34); Red Blood Count 3.28 M/mm3 (3.65-5.03)
[2022-02-12 11:10] LABS: Mean Corpuscular Volume 66 fl (79-97)
[2022-02-12 11:11] LABS: Platelet Count 77 K/mm3 (140-440)
--- NOTE | 2022-02-12 11:45 | Event Note ---
Date: 02/12/22 On-call provider called secondary to heavy vaginal bleeding in this patient. Pt hypotensive. Normal saline infusing. Pt given Methergine 0.2 mg IM. Cytotec 800 mcg per rectum. Code Met team at beside. Fundus above umbilicus and deviated to the left. Gloved hand for vaginal sweep with copious amount of clots removed. Fundus now 3 fingerbreaths below umbilicus. Transfusing 2 units PRBCs. Awaiting repeat CBC, coags and Fibrinogen. Continue to closely monitor patient. QBL reported to be 1550 mL.
[2022-02-12 11:46] LABS: INR 1.72 (0.87-1.13)
[2022-02-12 11:47] LABS: Partial Thromboplastin Time 29.9 Sec. (24.2-36.6)
[2022-02-12 11:54] LABS: Blood Urea Nitrogen 4 mg/dL (7-17); Calcium 6.1 mg/dL (8.4-10.2); Hemolysis Index 0
[2022-02-12 11:58] LABS: BUN/Creatinine Ratio 13
--- NOTE | 2022-02-12 12:52 | Event Note ---
Date: 02/12/22 Was initially called to the L&D around 10:58 AM with cardiac arrest but when I got to the patient bedside I noticed she had syncope episode. She responded to verbal command. Pt just had around 1:00AM this morning with prepartum hemoglobin 7.0 pre delivery. She noted to be hypotensive and was started on pressure bag ivf ns 1L bolus with some improvement. Also have the [employer] Supervisor physician Dr Ram who ordered patient to be given oxytocin iv and Cytotec per rectal.
[2022-02-12] MEDS ORDERED: SODIUM CHLORIDE 0.9% 500 ML 500 ML IV ONE (13:00)
[2022-02-12 13:01] LABS: Basophils % (Manual) 0 % (0.0-1.8); Poikilocytosis 1+; Total Cells Counted 100
[2022-02-12 13:02] LABS: Ovalocytes 1+; Platelet Estimate Consistent w Auto
[2022-02-12] MEDS: METHYLERGONOVINE MALEATE 0.2 MG/ML VIAL IM SCH ×2 (13:52→17:53)
[2022-02-12 16:17] LABS: Hematocrit 25.3 % (30.3-42.9); Mean Corpuscular HGB Conc 32 % (30-34); Mean Corpuscular Volume 71 fl (79-97); Red Blood Count 3.58 M/mm3 (3.65-5.03)
[2022-02-12 16:22] LABS: Platelet Count 60 K/mm3 (140-440)
[2022-02-12 16:28] LABS: INR 1.44 (0.87-1.13)
--- NOTE | 2022-02-12 20:50 | Event Note ---
Date: 02/12/22 On-call physician notified that pt would prefer to receive Methergine orally because her legs are sore from the IM injections. Transition to PO Methergine series. Plan to repeat labs in AM.
[2022-02-12] MEDS: METHYLERGONOVINE 0.2 MG TABLET PO SCH (21:46)
[2022-02-13] MEDS: METHYLERGONOVINE 0.2 MG TABLET PO SCH (05:18)
--- NOTE | 2022-02-13 08:45 | Progress Note ---
Assessment and Plan - Patient Problems (1) Anemia Current Visit: Yes Status: Acute Plan to address problem: Will repeat hemoglobin hematocrit this a.m. If remains stable will consider discharge home today Subjective - Subjective Date of service: 02/13/22 Principal diagnosis: SROM Interval history: The patient reports improvement in her lochia. She denies any dizziness or chest pain. The patient is status posttransfusion of blood products secondary to severe anemia. She states her pain is well controlled. Patient reports: appetite normal, voiding normally, pain well controlled, no dizzy ambulation : doing well Objective - Vital Signs Latest vital signs: Vital Signs Temp Pulse Resp BP Pulse Ox Pulse Ox 02/13/22 02:33 98.4 F 68 18 118/78 100 02/12/22 20:00 99 02/12/22 18:02 116/73 02/12/22 15:27 78 18 126/85 100 02/12/22 13:45 98 F 68 18 119/83 100 02/12/22 13:30 97.9 F 76 18 120/86 100 02/12/22 12:50 73 18 124/84 100 02/12/22 12:40 76 18 119/80 100 02/12/22 12:11 68 115/69 100 02/12/22 11:52 99 H 114/74 100 02/12/22 11:24 79 102/60 100 02/12/22 11:10 106 H 118/58 100 02/12/22 11:00 104 H 106/67 100 02/12/22 10:54 107/53 02/12/22 10:49 107/57 02/12/22 10:40 94 H 103/67 99 02/12/22 10:14 89 18 103/70 99 02/12/22 09:55 98 Intake and Output 02/12/22 02/13/22 02/13/22 22:59 06:59 14:59 Intake Total 360 480 Output Total 400 750 Balance -40 -270 Intake: Oral 360 Intake, Free Water 480 Output: Urine 400 750 Indwelling Catheter 400 750 Other: Total, Intake Amount 240 Total, Output Amount 400 300 # Voids Void 0 - Labs Labs: Abnormal lab results 02/10/22 02/12/22 02/12/22 Range/Units 16:30 11:17 11:17 WBC (4.5-11.0) K/mm3 RBC (3.65-5.03) M/mm3 Hgb (10.1-14.3) gm/dl Hct (30.3-42.9) % MCV (79-97) fl MCH (28-32) pg RDW (13.2-15.2) % Plt Count (140-440) K/mm3 Seg Neuts % (Manual) (40.0-70.0) % Lymphocytes % (Manual) (13.4-35.0) % Seg Neutrophils # Man (1.8-7.7) K/mm3 PT 22.8 H (12.2-14.9) Sec. INR 1.72 H (0.87-1.13) Potassium 3.3 L (3.6-5.0) mmol/L Chloride 116.7 H (98-107) mmol/L Carbon Dioxide 16 L (22-30) mmol/L BUN 4 L (7-17) mg/dL Creatinine 0.3 L (0.6-1.2) mg/dL Calcium 6.1 L (8.4-10.2) mg/dL Crossmatch See Detail 02/12/22 02/12/22 02/12/22 Range/Units 15:43 15:43 Unknown WBC 23.0 H 20.7 H (4.5-11.0) K/mm3 RBC 3.58 L 3.28 L (3.65-5.03) M/mm3 Hgb 8.0 L 6.8 L (10.1-14.3) gm/dl Hct 25.3 L 21.5 L (30.3-42.9) % MCV 71 L 66 L (79-97) fl MCH 22 L 21 L (28-32) pg RDW 22.0 H 20.0 H (13.2-15.2) % Plt Count 60 L 77 L (140-440) K/mm3 Seg Neuts % (Manual) 86.0 H (40.0-70.0) % Lymphocytes % (Manual) 10.0 L (13.4-35.0) % Seg Neutrophils # Man 17.8 H (1.8-7.7) K/mm3 PT 19.7 H (12.2-14.9) Sec. INR 1.44 H (0.87-1.13) Potassium (3.6-5.0) mmol/L Chloride (98-107) mmol/L Carbon Dioxide (22-30) mmol/L BUN (7-17) mg/dL Creatinine (0.6-1.2) mg/dL Calcium (8.4-10.2) mg/dL Crossmatch
[2022-02-13 10:41] LABS: Hematocrit 23.9 % (30.3-42.9); Hemoglobin 7.6 gm/dl (10.1-14.3)
[2022-02-13 16:07] VITALS: BP 123/84
== END 2022-02-13 16:30 | disposition home or self-care (01) | DRG 774 ==
LOC: TRG 10:24 → APU 10:25 → TRG 14:56 → APU 14:56 → LD 15:11 → OB 02-12 05:59
PROVIDERS: ADMIT Obstetrics & Gynecology; ATTEND Obstetrics & Gynecology
PROC: 10E0XZZ Delivery of Products of Conception, External Approach (ICD-10-PCS; principal; 2022-02-12)
PROC: 30233K1 Transfusion of Nonautologous Frozen Plasma into Peripheral Vein, Percutaneous Approach (ICD-10-PCS; 2022-02-12)
PROC: 30233N1 Transfusion of Nonautologous Red Blood Cells into Peripheral Vein, Percutaneous Approach (ICD-10-PCS; 2022-02-12)
DX: O42.02 Full-term premature rupture of membranes, onset of labor within 24 hours of rupture (principal); O98.32 Other infections with a predominantly sexual mode of transmission complicating childbirth; Z20.822 Contact with and (suspected) exposure to COVID-19; O99.12 Other diseases of the blood and blood-forming organs and certain disorders involving the immune mechanism complicating childbirth; O99.02 Anemia complicating childbirth; Z3A.38 38 weeks gestation of pregnancy; Z37.0 Single live birth; D69.6 Thrombocytopenia, unspecified; A60.00 Herpesviral infection of urogenital system, unspecified
CPT/HCPCS: 36415; 76815; 80048; 85007; 85014; 85018; 85025; 85027; 85384; 85610; 85730; 86850; 86900; 86901; 86920; 96360; 96365; 96368; 96374; 96375; 96376; G0378; J0290; J0595; J2210; J2405; J2590; J3010; J7030; J7040; J7120; P9016; P9017; U0003